=== PATIENT | male | born 1970 | race Caucasian/White ===

== ENCOUNTER 2018-04-10 11:18 | Emergency (ER) | payer OTHER, SELFPAY ==
[2018-04-10 11:18] VITALS: BP 193/84; PULSE 85; RESP 16; TEMP 36.8; O2SAT 97; BMI 45.7
--- NOTE | 2018-04-10 11:38 | RAD_ITS ---
STUDY: X-RAY - THORACIC SPINE REASON FOR EXAM: Male, 47 years old. Back pain for one week without known injury. TECHNIQUE: 5 view(s) of the thoracic spine were obtained. COMPARISON: Chest radiograph dated November 19, 2015. FINDINGS: There is an increase in the normal thoracic kyphosis. There is no substantial scoliosis. There is demineralization of the thoracic spine with endplate spondylosis. There is multilevel disc space narrowing of the thoracic spine. The soft tissue structures are unremarkable. RAD/Thoracic Spine 3 Views IMPRESSION: Multilevel thoracic spondylosis and degenerative disc disease of the thoracic spine. Electronically Signed: Kamryn Bedoya MD at 14:45 EDT , Service support ,
--- NOTE | 2018-04-10 11:38 | RAD_ITS ---
STUDY: X-RAY - UNILATERAL RIBS ( LEFT ) WITH CHEST REASON FOR EXAM: Male, 47 years old. Left-sided rib pain. TECHNIQUE - RIBS: Four view(s) of the ribs. TECHNIQUE - CHEST: Single PA view of the chest. COMPARISON: November 19, 2015. FINDINGS - RIBS: Normal visualized ribs without a demonstrated fracture. FINDINGS - CHEST: The lungs are clear and expanded. There is no demonstrated pleural abnormality. Normal size heart. Normal mediastinum and jimi. Normal visualized pulmonary arteries. Normal visualized aortic arch and descending thoracic aorta. There are diffuse degenerative changes of the visualized thoracic spine. Normal visualized ribs, clavicles, and shoulders. There is no demonstrated abnormality of the visualized soft tissue structures of the upper abdomen. RAD/Ribs Uni Min 3V w/PA Chest IMPRESSION: RIBS: No radiographic evidence for acute fracture. If there is still clinical concern for acute fracture, follow-up bone scan maybe helpful in evaluating a healing radiographically occult fracture. CHEST: No radiographic evidence of acute cardiopulmonary disease. Electronically Signed: Kamryn Bedoya MD at 13:09 EDT , Service support ,
--- NOTE | 2018-04-10 11:39 | ED.VISSUMM ---
- ER Visit Summary Date of Service: 04/10/18 Chief Complaint: Back pain History of Present Illness: The patient is a 47 M presenting with back pain. Patient states 3 weeks ago he pulled his right lower back. That improved and then 1 week ago he started having pain in the left mid back. This is worsened with movement and certain positions. He was seen by his primary care physician and given ibuprofen and a muscle relaxer. He then called his PCP the next day because the pain was worsening and was given steroids. He was advised to not take ibuprofen along with the steroids. He has now run out of the muscle relaxer and is taking Tylenol. He denies any known injury. No fever. Denies chest pain or shortness of breath. Denies other complaints. Physical Examination: Vitals are stable. Patient is afebrile. Alert no acute distress. HEENT exam is unremarkable. Neck is supple. Lungs are clear and equal bilaterally. Left posterior/lateral mid chest wall tenderness with no crepitus. Left paraspinal thoracic muscle tenderness with no midline tenderness Heart is regular rate and rhythm. Abdomen is soft nontender nondistended. Extremities are unremarkable. Skin is warm and dry. No rash No focal neurologic deficit. Normal strength Remainder of exam is unremarkable. Emergency Department Course and Treatment: D-dimer is negative. Left rib series shows no acute process. Thoracic spine shows degenerative changes. Patient is given a short course of [place] for home and advised to follow-up with his primary care physician. Advised return to ED if worsening complaints. Disposition: Discharge home Impression: Thoracic strain This note was generated with [employer] dictation software. It may contain incorrect words, spelling, and punctuation that were not noted in review of the chart prior to signing ED Disposition - Plan for ED Patient: Chief Complaint: Back Instructions: ED Neck Back Pain General Prescriptions: Hydrocodone Bitart/Apap 5-325 [[place] 5MG-325MG] 1 tablet PO Q6H PRN PRN 3 Days #10 tablet PRN Reason: Pain Referrals: Kurtis Chris MD [Primary Care Provider] -
--- NOTE | 2018-04-10 11:43 | ED.DCSUM_ITS ---
- ER Visit Summary Date of Service: 04/10/18 Chief Complaint: Back pain History of Present Illness: The patient is a 47 M presenting with back pain. Patient states 3 weeks ago he pulled his right lower back. That improved and then 1 week ago he started having pain in the left mid back. This is worsened with movement and certain positions. He was seen by his primary care physician and given ibuprofen and a muscle relaxer. He then called his PCP the next day because the pain was worsening and was given steroids. He was advised to not take ibuprofen along with the steroids. He has now run out of the muscle relaxer and is taking Tylenol. He denies any known injury. No fever. Denies chest pain or shortness of breath. Denies other complaints. Physical Examination: Vitals are stable. Patient is afebrile. Alert no acute distress. HEENT exam is unremarkable. Neck is supple. Lungs are clear and equal bilaterally. Left posterior/lateral mid chest wall tenderness with no crepitus. Left paraspinal thoracic muscle tenderness with no midline tenderness Heart is regular rate and rhythm. Abdomen is soft nontender nondistended. Extremities are unremarkable. Skin is warm and dry. No rash No focal neurologic deficit. Normal strength Remainder of exam is unremarkable. Emergency Department Course and Treatment: D-dimer is negative. Left rib series shows no acute process. Thoracic spine shows degenerative changes. Patient is given a short course of [place] for home and advised to follow-up with his primary care physician. Advised return to ED if worsening complaints. Disposition: Discharge home Impression: Thoracic strain This note was generated with [employer] dictation software. It may contain incorrect words, spelling, and punctuation that were not noted in review of the chart prior to signing ED Disposition - Plan for ED Patient: Chief Complaint: Back Instructions: ED Neck Back Pain General Prescriptions: Hydrocodone Bitart/Apap 5-325 [[place] 5MG-325MG] 1 tablet PO Q6H PRN PRN 3 Days # 10 tablet PRN Reason: Pain Referrals: Kurtis Chris MD [Primary Care Provider] -
[2018-04-10 12:28] LABS: D-Dimer Quantitative (DVT/PE) < 0.27 FEU/ug/m (0.27-0.49)
[2018-04-10 14:09] VITALS: BP 160/82; PULSE 67; RESP 18; O2SAT 99
--- NOTE | 2018-04-10 15:00 | ED.DEP ---
ED Disposition - Plan for ED Patient: Chief Complaint: Back Instructions: ED Neck Back Pain General Prescriptions: Hydrocodone Bitart/Apap 5-325 [[place] 5MG-325MG] 1 tablet PO Q6H PRN PRN 3 Days #10 tablet PRN Reason: Pain Referrals: Kurtis Chris MD [Primary Care Provider] -
--- NOTE | 2018-04-10 15:01 | DCINST.ED_ITS ---
ED Disposition - Plan for ED Patient: Chief Complaint: Back Instructions: ED Neck Back Pain General Prescriptions: Hydrocodone Bitart/Apap 5-325 [[place] 5MG-325MG] 1 tablet PO Q6H PRN PRN 3 Days # 10 tablet PRN Reason: Pain Referrals: Kurtis Chris MD [Primary Care Provider] -
== END 2018-04-10 15:15 | disposition home or self-care (01) ==
LOC: ED 11:43
PROVIDERS: Emergency Provider Emergency Medicine; Family Provider Family Medicine; PCP Family Medicine
DX: S29.012A Strain of muscle and tendon of back wall of thorax, initial encounter (principal); X50.9XXA Other and unspecified overexertion or strenuous movements or postures, initial encounter; Y93.9 Activity, unspecified; Y92.9 Unspecified place or not applicable; Z72.0 Tobacco use
CPT/HCPCS: 36415; 71101; 72072; 85379; 99283

== ENCOUNTER → 2018-09-08 08:49 | Outpatient (CLI) | payer OTHER, SELFPAY ==
[2018-09-08 10:26] LABS: AST(SGOT) 16 U/L (15-37); Alanine Aminotransfer ALT/SGPT 29 U/L (16-61); Albumin, Serum 3.8 g/dL (3.2-5.0); Alkaline Phosphatase 60 U/L (45-117); Anion Gap 6 (5-15); BUN 19 mg/dL (7-18); Chloride 101 mmol/L (98-107); Cholesterol 138 mg/dL (200); EST Glomerular Filtration Rate 86 mL/min (>60); Est Glom Filt Rate - Afr Amer 104 mL/min (>60); Globulin 3.9 g/dL (2.2-4.2); Glucose 91 mg/dL (74-106); High Density Lipoprotein 41 mg/dL; Potassium 4.2 mmol/L (3.5-5.1); Protein, Total 7.7 g/dL (6.4-8.2); Sodium Level 137 mmol/L (136-145); Triglycerides 159 mg/dL; Very Low Density Lipoprotein 32 mg/dL (5-40)
== END ==
PROVIDERS: Family Provider Family Medicine; PCP Family Medicine; Visit Provider Family Medicine
DX: I10 Essential (primary) hypertension (principal)
CPT/HCPCS: 36415; 80053; 80061

== ENCOUNTER 2018-10-07 10:14 | Outpatient (RCR) | payer OTHER, SELFPAY | END 2018-10-24 23:59 | LOC: NS 10:14 | PROVIDERS: Family Provider Family Medicine; PCP Family Medicine; Visit Provider Family Medicine | DX: E66.01 Morbid (severe) obesity due to excess calories (principal); Z68.42 Body mass index [BMI] 45.0-49.9, adult; R73.01 Impaired fasting glucose; G47.33 Obstructive sleep apnea (adult) (pediatric); I10 Essential (primary) hypertension; E78.5 Hyperlipidemia, unspecified; Z71.3 Dietary counseling and surveillance | CPT/HCPCS: 97802 ==

== ENCOUNTER 2018-11-11 08:00 | Outpatient (RCR) | payer OTHER, SELFPAY | END 2018-11-24 23:59 | LOC: NS 08:00 | PROVIDERS: Family Provider Family Medicine; PCP Family Medicine; Visit Provider Family Medicine | DX: E66.01 Morbid (severe) obesity due to excess calories (principal); Z68.42 Body mass index [BMI] 45.0-49.9, adult; R73.01 Impaired fasting glucose; G47.33 Obstructive sleep apnea (adult) (pediatric); I10 Essential (primary) hypertension; E78.5 Hyperlipidemia, unspecified; Z71.3 Dietary counseling and surveillance | CPT/HCPCS: 97803 ==

== ENCOUNTER 2018-12-09 08:30 | Outpatient (RCR) | payer OTHER, SELFPAY | END 2018-12-22 23:59 | LOC: NS 08:30 | PROVIDERS: Family Provider Family Medicine; PCP Family Medicine; Visit Provider Family Medicine | DX: E66.01 Morbid (severe) obesity due to excess calories (principal); Z68.42 Body mass index [BMI] 45.0-49.9, adult; R73.01 Impaired fasting glucose; G47.33 Obstructive sleep apnea (adult) (pediatric); I10 Essential (primary) hypertension; E78.5 Hyperlipidemia, unspecified; Z71.3 Dietary counseling and surveillance | CPT/HCPCS: 97803 ==

== ENCOUNTER 2019-01-06 08:30 | Outpatient (RCR) | payer OTHER, SELFPAY | END 2019-01-22 23:59 | LOC: NS 08:30 | PROVIDERS: Family Provider Family Medicine; PCP Family Medicine; Visit Provider Family Medicine | DX: E66.01 Morbid (severe) obesity due to excess calories (principal); Z68.42 Body mass index [BMI] 45.0-49.9, adult; R73.01 Impaired fasting glucose; G47.33 Obstructive sleep apnea (adult) (pediatric); I10 Essential (primary) hypertension; E78.5 Hyperlipidemia, unspecified; Z71.3 Dietary counseling and surveillance | CPT/HCPCS: 97803 ==

== ENCOUNTER 2019-01-27 10:32 | Outpatient (RCR) | payer OTHER, SELFPAY | END 2019-02-21 23:59 | LOC: NS 10:32 | PROVIDERS: Family Provider Family Medicine; PCP Family Medicine; Visit Provider Family Medicine | DX: E66.01 Morbid (severe) obesity due to excess calories (principal); Z68.42 Body mass index [BMI] 45.0-49.9, adult; R73.01 Impaired fasting glucose; G47.33 Obstructive sleep apnea (adult) (pediatric); I10 Essential (primary) hypertension; E78.5 Hyperlipidemia, unspecified; Z71.3 Dietary counseling and surveillance | CPT/HCPCS: 97803 ==

== ENCOUNTER 2019-03-10 10:39 | Outpatient (RCR) | payer OTHER, SELFPAY | END 2019-03-24 23:59 | LOC: NS 10:39 | PROVIDERS: Family Provider Family Medicine; PCP Family Medicine; Visit Provider Family Medicine | DX: E66.01 Morbid (severe) obesity due to excess calories (principal); Z68.42 Body mass index [BMI] 45.0-49.9, adult; R73.01 Impaired fasting glucose; G47.33 Obstructive sleep apnea (adult) (pediatric); I10 Essential (primary) hypertension; E78.5 Hyperlipidemia, unspecified; Z71.3 Dietary counseling and surveillance | CPT/HCPCS: 97803 ==

== ENCOUNTER 2019-04-21 10:30 | Outpatient (RCR) | payer OTHER, SELFPAY | END 2019-04-23 23:59 | LOC: NS 10:30 | PROVIDERS: Family Provider Family Medicine; PCP Family Medicine; Visit Provider Family Medicine | DX: E66.01 Morbid (severe) obesity due to excess calories (principal); Z68.42 Body mass index [BMI] 45.0-49.9, adult; R73.01 Impaired fasting glucose; G47.33 Obstructive sleep apnea (adult) (pediatric); I10 Essential (primary) hypertension; E78.5 Hyperlipidemia, unspecified; Z71.3 Dietary counseling and surveillance | CPT/HCPCS: 97803 ==

== ENCOUNTER 2019-05-05 10:37 | Outpatient (RCR) | payer OTHER, SELFPAY | END 2019-05-24 23:59 | LOC: NS 10:37 | PROVIDERS: Family Provider Family Medicine; PCP Family Medicine; Visit Provider Family Medicine | DX: E66.01 Morbid (severe) obesity due to excess calories (principal); Z68.42 Body mass index [BMI] 45.0-49.9, adult; R73.01 Impaired fasting glucose; G47.33 Obstructive sleep apnea (adult) (pediatric); I10 Essential (primary) hypertension; E78.5 Hyperlipidemia, unspecified; Z71.3 Dietary counseling and surveillance | CPT/HCPCS: 97803 ==

== ENCOUNTER 2019-05-26 09:36 | Outpatient (RCR) | payer OTHER, SELFPAY | END 2019-06-24 23:59 | LOC: NS 09:36 | PROVIDERS: Family Provider Family Medicine; PCP Family Medicine; Visit Provider Family Medicine | DX: E66.01 Morbid (severe) obesity due to excess calories (principal); Z68.42 Body mass index [BMI] 45.0-49.9, adult; R73.01 Impaired fasting glucose; G47.33 Obstructive sleep apnea (adult) (pediatric); I10 Essential (primary) hypertension; E78.5 Hyperlipidemia, unspecified; Z71.3 Dietary counseling and surveillance ==

== ENCOUNTER → 2019-08-29 09:40 | Outpatient (CLI) | payer OTHER, SELFPAY ==
[2019-08-29 13:04] LABS: Anion Gap 6 (5-15); BUN 19 mg/dL (7-18); BUN/Creat Ratio 18.1 RATIO (10-20); Calcium,Total 9.4 mg/dL (8.5-10.1); Chloride 102 mmol/L (98-107); Cholesterol 123 mg/dL (200); Creatinine, Serum 1.05 mg/dL (0.70-1.30); EST Glomerular Filtration Rate 81 mL/min (>60); Est Glom Filt Rate - Afr Amer 97 mL/min (>60); Glucose 87 mg/dL (74-106); High Density Lipoprotein 39 mg/dL; Potassium 4.1 mmol/L (3.5-5.1); Sodium Level 136 mmol/L (136-145); Triglycerides 127 mg/dL; Very Low Density Lipoprotein 25 mg/dL (5-40)
== END ==
PROVIDERS: Family Provider Family Medicine; PCP Family Medicine; Referring Provider Family Medicine; Visit Provider Family Medicine
DX: I10 Essential (primary) hypertension (principal)
CPT/HCPCS: 36415; 80048; 80061

== ENCOUNTER → 2019-09-28 12:19 | Outpatient (CLI) | payer OTHER, SELFPAY ==
--- NOTE | 2019-09-28 16:33 | NEURO ---
NCS and/or EMG Patient Report HPI: Patient is a 48-year-old male who presented with numbness and tingling in both feet for last several years. 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 His feet riley at night and he says his feet drag sometimes while walking. Patient does not have history of diabetes. Patient has history of back problems. Physical Exam: Decreased sensation to light touch noted in distal lower extremities especially in the both feet area, especially in the plantar aspect along the base of the toes. Findings: 1. Right and left sural sensory responses were non-recordable. 2. Normal right and left superficial peroneal sensory nerve responses. 3. There is evidence of reduced amplitudes of CMAPs of right and left common peroneal nerve motor responses along with a decreased nerve conduction velocities. 4. Right and left tibial motor nerve response showed evidence of decreased amplitude of CMAPs of the distal responses. Proximal responses were not recordable in the right and left tibial motor nerves. 5. Decrease insertional activity and recruitment noted in extensor digitorum brevis and extensor hallucis longus muscles. Impression: 1. 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 Recommendation: 1. Clinical correlation and appropriate work-up was recommended.
== END ==
PROVIDERS: Family Provider Family Medicine; PCP Family Medicine; Referring Provider Family Medicine; Visit Provider Family Medicine
DX: G62.9 Polyneuropathy, unspecified (principal)
CPT/HCPCS: 95886; 95910

== ENCOUNTER → 2020-01-01 07:31 | Outpatient (CLI) | payer OTHER, SELFPAY ==
[2020-01-01 10:17] LABS: Erythrocyte Sedimentation Rate 17 mm/hr (0-15)
[2020-01-01 10:48] LABS: Hemoglobin A1c 5.8 % (4.2-6.3)
[2020-01-01 10:59] LABS: HIV - WCH Non-Reactive (Nonreactive); Hepatitis C Antibody Non-Reactive (Nonreactive); Vitamin B12 414 pg/mL (211-911)
[2020-01-01 11:25] LABS: Ferritin 235 ng/mL (26-388); Iron 80 ug/dL (65-175); Iron Binding Capacity,Total 337 ug/dL (250-450); PERCENT IRON SATURATION 23.7 % (15.0-55.0); Rheumatoid Factor < 10.0 IU/mL (<15); T3 Uptake 33 % (33-40); T4 Free Direct 1.01 ng/dL (0.76-1.46); T4 Total, Thyroxin 9.4 ug/dL (4.5-12.1); T7 / Free Thyroxin Index 3.1 (1.4-4.5); Thyroid Stim Hormone (TSH) 1.92 uIU/mL (0.358-3.74)
[2020-01-02 14:08] LABS: RNP Ab 0.2 AI (0.0-0.9); Smith Ab <0.2 AI (0.0-0.9)
[2020-01-02 17:15] LABS: ANTINUCLEAR ANTIBODIES DIRECT Negative (Negative)
[2020-01-03 16:08] LABS: Albumin 3.7 g/dL (2.9-4.4); Alpha-1-Globulins 0.2 g/dL (0.0-0.4); Alpha-2-Globulins 0.9 g/dL (0.4-1.0); Arsenic, Urine 24 H 9 ug/24 hr (0-50); Gamma Globulin 1.1 g/dL (0.4-1.8); Immunoglobulin A 221 mg/dL (90-386); Immunoglobulin M 28 mg/dL (20-172)
[2020-01-03 17:06] LABS: ARSENIC (TOTAL), URINE 12 ug/L (0-50); Creatinine, Urine 1.99 g/L (0.30-3.00)
[2020-01-03 17:07] LABS: Immunoglobulin G 1264 mg/dL (700-1600)
== END ==
PROVIDERS: PCP Family Medicine; Referring Provider Psychiatry & Neurology Neurology; Visit Provider Psychiatry & Neurology Neurology
DX: E61.1 Iron deficiency (principal); G25.81 Restless legs syndrome; G62.9 Polyneuropathy, unspecified; R73.9 Hyperglycemia, unspecified
CPT/HCPCS: 36415; 82175; 82570; 82607; 82728; 82746; 82784; 83036; 83540; 83550; 83655; 83825; 84165; 84436; 84439; 84443; 84479; 85652; 86038; 86235; 86334; 86431; 86703; 86803

== ENCOUNTER → 2021-03-31 08:52 | Outpatient (CLI) | payer OTHER, SELFPAY ==
[2021-03-31 10:36] LABS: PSA,Total- Diagnostic 0.73 ng/mL (0.0-4.0)
[2021-04-01 12:14] LABS: ALB/GLOB Ratio 1.1 RATIO (0.9-2.4); AST(SGOT) 13 U/L (15-37); Alanine Aminotransfer ALT/SGPT 24 U/L (16-61); Albumin, Serum 3.9 g/dL (3.2-5.0); Alkaline Phosphatase 64 U/L (45-117); Anion Gap 6 (5-15); BUN 22 mg/dL (7-18); BUN/Creat Ratio 18.6 RATIO (10-20); Calcium,Total 9.4 mg/dL (8.5-10.1); Chloride 104 mmol/L (98-107); Creatinine, Serum 1.18 mg/dL (0.70-1.30); EST Glomerular Filtration Rate 70 mL/min (>60); Est Glom Filt Rate - Afr Amer 85 mL/min (>60); Globulin 3.7 g/dL (2.2-4.2); Glucose 97 mg/dL (74-106); Potassium 4.6 mmol/L (3.5-5.1); Protein, Total 7.6 g/dL (6.4-8.2); Sodium Level 138 mmol/L (136-145)
== END ==
PROVIDERS: PCP Family Medicine; Visit Provider Family Medicine
DX: N41.0 Acute prostatitis (principal); R73.01 Impaired fasting glucose
CPT/HCPCS: 36415; 80053; 84153

== ENCOUNTER → 2021-05-08 13:43 | Outpatient (CLI) | payer OTHER, SELFPAY ==
--- NOTE | 2021-05-08 13:46 | RAD_ITS ---
INDICATION: C6 RADICULOPATHY EXAMINATION/TECHNIQUE: X-RAY - XR Spine Cervical 4 or 5 Views COMPARISON: None. FINDINGS: VERTEBRAE: Preserved vertebral body height. No fracture. No spondylolisthesis. Preservation of the normal cervical lordosis. Mild multilevel facet arthropathy. DISCS: Mild degenerative disc disease and spondylosis at C5-6 and C6-7. NECK SOFT TISSUES: No prevertebral soft tissue widening. LUNG APICES: Clear. RAD/Cerv Spine 4 or 5 Views IMPRESSION: Mild degenerative disc disease and spondylosis at C5-6 and C6-7. Electronically Signed: Constantine Lindsey MD at 23:43 EDT Tel , Service support ,
== END ==
PROVIDERS: PCP Family Medicine; Referring Provider Family Medicine; Visit Provider Family Medicine
DX: M54.12 Radiculopathy, cervical region (principal)
CPT/HCPCS: 72050

== ENCOUNTER 2021-07-01 16:00 | Outpatient (RCR) | payer OTHER, SELFPAY ==
--- NOTE | 2021-06-20 13:06 | HP.PTEVAL ---
Patient's Visit Information FELIX JUNIOR is a 50 year old M referred to Physical Therapy by Dr. Kurtis Chris MD with a diagnosis of L UE radiculopathy. Date of Evaluation: 06/20/21 Physical Therapist: Matthew Pearl, PT, ATC - Visit Plan Frequency: 2-3x /Week Duration: 4 Weeks Plan: C/S DTR, postural edu, PROM/Mobs, US. Trial of CTx first appt. Reassess - Subjective Pt reports tingling and numbness in the L UE which originates in the left shoulder and extends down to the fingers. Pt reports this has been going on for a month and a half. Pt reports the pain had an insidious onset in nature. Pt does not this all started shortly after a 13oo[address] trip he went on and notes this may have provoked his pain. Pt reports his sx's are intermittent in nature. Pt reports sitting in a soft chair doesn?t provoke his sx's, but sitting in a hard chair during this evaluation is causing his sx's intermittlently. 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 Pt reports he has had x-rays of the shoulder and neck. Pt reports he hasn?t been told any of the results at this time. Pt reports he also tends to feel his pain a lot when he goes on walks. Pt notes he is R hand dominant. Pt reports sleep difficulty secondary to pain. Pt reports L UE pain is 1/10 while at rest, but increases to 7/10 at worst. - Pain L UE Pain Intensity (Out of 10): 1 Pain Intensity Range: 7 - Objective Neuro: B UE sensation is WNL to light touch. B bicepital reflex= 2/3. MMT: B UE's are grossly 5/5 throughout. Party Plan Salesperson strength: R= 145 #F, L= 135 #F. ROM: C/S ROM is WNL with exception to retraction and extension which are both minimally limited. Repeated Movements: RPIS 10x3 bertter, RRIS 10x3 peripheralised sx's. Special tests: Pos apley compression and distraction tests - Balance/Special Test Scores Quick DASH Score: 20.4525 - Goals Goal 1:: Decrease L UE pain x 50% to aid with sleep Goal Time Frame: 4-6 Weeks Goal 2:: Decrease L UE radiculopathy x 50% to aid with sleep Goal Time Frame: 4-6 Weeks Goal 3:: I with HEP Goal Time Frame: 4-6 Weeks - Rehabilitation Potential Physical Therapy Diagnosis: Pt has L UE radiculopathy, L UE pain, and limited C/S ROM secondary to DDD Rehabilitation Potential: Good - Anticipated Interventions Patient/Client Instruction: Educate patient on: Condition, Plan of Care For the Purpose of:: To improve self management Manual Therapy Techniques to Include: Mobilization, Soft tissue mobilization For the Purpose of:: To decrease pain, To increase ROM Ultrasound (thermal/non thermal): Yes For the Purpose of:: To decrease pain Thank you for the opportunity to evaluate your patient. For Medicare and Medicare HMO plans, please review the plan of care and approve it. It will need to be FAXED BACK to us at [phone] for Medicare purposes. For Medicare only, by signing this I certify the plan of care. Please let me know if there are questions or concerns regarding this plan of care. Physician Signature: Date:
--- NOTE | 2021-07-08 13:26 | HP.PT.NRP ---
FELIX JUNIOR was seen in my office for initial evaluation on 06/20/21. The following Plan of Care was established for this patient: Initial Frequency: 2-3x /Week Initial Duration: 4 Weeks Patient/Client Instruction: Educate patient on: Condition, Plan of Care For the Purpose of:: To improve self management Manual Therapy Techniques to Include: Mobilization, Soft tissue mobilization For the Purpose of:: To decrease pain, To increase ROM Ultrasound (thermal/non thermal): Yes For the Purpose of:: To decrease pain This patient was last seen in our office . Pertinent comments regarding their Physical therapy will appear below: Pt returned on 07/04/21 on his 5th PT visit to report that he didnt feel like his symptoms had changed at all. Pt is discontinued at this time and encouraged to return to his doctor at this time. At this point I will be discontinuing this patient from physical therapy. I would be happy to see this patient again in the future if found appropriate by the physician. Thank you! Matthew Pearl, PT, ATC Balance/Gait/Functional tests - Balance/Special Test Scores Quick DASH Score: 20.4528
== END 2021-07-01 19:00 | disposition home or self-care (01) ==
LOC: PT 16:00
PROVIDERS: PCP Family Medicine; Referring Provider Family Medicine; Visit Provider Family Medicine
DX: M54.12 Radiculopathy, cervical region (principal)
CPT/HCPCS: 97012; 97140; 97161

== ENCOUNTER → 2021-07-26 08:00 | Outpatient (CLI) | payer OTHER, SELFPAY ==
--- NOTE | 2021-07-26 08:09 | MRI_ITS ---
STUDY: MRI CERVICAL SPINE WITHOUT CONTRAST REASON FOR EXAM: Male, 50 years old. C5 RADICULOPATHY, left arm tingling TECHNIQUE: Standardized fat and water weighted pulse sequences were obtained in the sagittal and axial planes. COMPARISON: None FINDINGS: Normal foramen magnum and brainstem-cervical cord junction. Normal cervical lordosis. C2-3: Normal endplates. Normal disc height, signal and morphology. Normal central canal and intervertebral neural foramina. C3-4: There is minimal disc space narrowing and endplate spondylosis. There is no significant disc herniation, central canal or right foraminal stenosis. Uncovertebral and facet arthropathy with moderate left foraminal stenosis. C4-5: There is minimal disc space narrowing and endplate spondylosis. There is no significant disc herniation, central canal or foraminal stenosis. C5-6: There is moderate disc space narrowing and endplates spondylosis. Moderate disc osteophyte complex with moderate central canal stenosis. Uncovertebral and facet arthropathy with moderate right and severe left foraminal stenosis. C6-7: There is minimal disc space narrowing and endplate spondylosis. There is no significant disc herniation, central canal stenosis. Uncovertebral and facet arthropathy with mild right and mild left foraminal stenosis. C7-T1: There is minimal disc space narrowing and endplate spondylosis. There is no significant disc herniation, central canal or foraminal stenosis. Normal cervical cord. MRI/Spine Cervical (Routine) IMPRESSION: C5/C6: Moderate central canal stenosis. Moderate right and severe left foraminal stenosis. Electronically Signed: Moreno Newman MD at 9:14 EDT Tel , Service support ,
== END ==
PROVIDERS: PCP Family Medicine; Referring Provider Family Medicine; Visit Provider Family Medicine
DX: M54.12 Radiculopathy, cervical region (principal)
CPT/HCPCS: 72141

== ENCOUNTER → 2022-02-19 | Outpatient (CLI) | payer OTHER, SELFPAY ==
[2022-02-19 10:09] LABS: Anion Gap 6 (5-15); BUN 22 mg/dL (7-18); BUN/Creat Ratio 17.2 RATIO (10-20); Calcium,Total 9.5 mg/dL (8.5-10.1); Chloride 100 mmol/L (98-107); Creatinine, Serum 1.28 mg/dL (0.70-1.30); EST Glomerular Filtration Rate 63 mL/min (>60); Est Glom Filt Rate - Afr Amer 77 mL/min (>60); Glucose 98 mg/dL (74-106); Potassium 4.3 mmol/L (3.5-5.1); Sodium Level 135 mmol/L (136-145)
== END | disposition home or self-care (01) ==
PROVIDERS: PCP Family Medicine; Referring Provider Family Medicine; Visit Provider Family Medicine
DX: I10 Essential (primary) hypertension (principal)
CPT/HCPCS: 36415; 80048

== ENCOUNTER → 2022-05-18 | Outpatient (CLI) | payer OTHER, SELFPAY ==
[2022-05-18 20:03] LABS: M R Staph aureus DNA By PCR Negative (Negative); Probe Check PASS; Specimen Processing Control PASS; Staph aureus DNA By PCR POSITIVE (Negative)
== END | disposition home or self-care (01) ==
PROVIDERS: PCP Family Medicine; Referring Provider Podiatrist; Visit Provider Podiatrist
DX: L03.90 Cellulitis, unspecified (principal)
CPT/HCPCS: 87070; 87075; 87077; 87186; 87205; 87640

== ENCOUNTER 2022-09-30 08:26 | Outpatient (CLI) | payer OTHER, SELFPAY ==
[2022-09-30 10:19] LABS: Hematocrit 43.2 % (40-54); Hemoglobin 14.5 g/dL (13.0-16.5); Mean Corp Hgb Conc 33.6 g/dL (32-36); Mean Corpuscular Hgb 29.3 pg (27.0-32.0); Mean Corpuscular Volume 87.3 fL (80-94); Mean Platelet Vol. 9.9 fl (6.2-12.0); Platelet Count 207 K/mm3 (150-450); RBC Distribution Width CV 12.3 % (11.6-14.6); RBC Distribution Width SD 39.2 fl (35.1-43.9); Red Blood Count 4.95 M/mm3 (4.6-6.2); White Blood Count 8.3 K/mm3 (4.4-11.0)
[2022-09-30 10:42] LABS: Vitamin B12 363 pg/mL (211-911); Vitamin D,25 Hydroxy 11.8 ng/mL
[2022-09-30 10:48] LABS: Anion Gap 6 (5-15); BUN 22 mg/dL (7-18); BUN/Creat Ratio 19.6 RATIO (10-20); Calcium,Total 9.4 mg/dL (8.5-10.1); Chloride 101 mmol/L (98-107); Cholesterol 150 mg/dL (200); Creatinine, Serum 1.12 mg/dL (0.70-1.30); EST Glomerular Filtration Rate 74 mL/min (>60); Est Glom Filt Rate - Afr Amer 89 mL/min (>60); Glucose 104 mg/dL (74-106); High Density Lipoprotein 36 mg/dL; Potassium 4.4 mmol/L (3.5-5.1); Sodium Level 135 mmol/L (136-145); Thyroid Stim Hormone (TSH) 1.24 uIU/mL (0.358-3.74); Triglycerides 202 mg/dL; Very Low Density Lipoprotein 40 mg/dL (5-40)
== END 2022-09-30 23:59 | disposition home or self-care (01) ==
LOC: MFPLAB 08:28
PROVIDERS: PCP Family Medicine; Referring Provider Family Medicine; Visit Provider Family Medicine
DX: R53.83 Other fatigue (principal); I10 Essential (primary) hypertension
CPT/HCPCS: 36415; 80048; 80061; 82306; 82607; 84403; 84443; 85027

== ENCOUNTER → 2023-04-12 | Outpatient (CLI) | payer OTHER, SELFPAY ==
[2023-04-12 07:46] LABS: Bacteria 0 SEEN /hpf (None Seen); Squamous Epithelial Cells - UA 0 SEEN /hpf (0-5)
[2023-04-12 10:10] LABS: Color, Urine Yellow (Yellow); Glucose, Dipstick Normal (Normal); Ketone-Dipstick Negative (Negative); Leukocyte Esterase-Dipstick Negative /ul (Negative); Nitrite-Dipstick Negative (Negative); Occult Blood-Urine Negative /ul (Negative); Protein-Dipstick 15 mg/dl (Negative); Specific Gravity, Urine 1.025 (1.002-1.030); Urine Bilirubin Dipstick Negative (Negative); Urine Clarity Clear (Clear); Urine Urobilinogen Normal (Normal)
[2023-04-12 10:23] LABS: Mucous, Urine RARE /hpf (<or=2+); Red Blood Cells-Urine 0-5 SEEN /hpf (0-5); White Blood Cells 0-5 SEEN /hpf (0-5)
[2023-04-12 10:29] LABS: Hematocrit 43.7 % (40-54); Hemoglobin 14.3 g/dL (13.0-16.5); Mean Corp Hgb Conc 32.7 g/dL (32-36); Mean Corpuscular Hgb 28.7 pg (27.0-32.0); Mean Corpuscular Volume 87.8 fL (80-94); Platelet Count 214 K/mm3 (150-450); RBC Distribution Width SD 41.4 fl (35.1-43.9); Red Blood Count 4.98 M/mm3 (4.6-6.2); White Blood Count 8.6 K/mm3 (4.4-11.0)
[2023-04-12 10:32] LABS: Vitamin B12 289 pg/mL (211-911)
[2023-04-12 11:05] LABS: ALB/GLOB Ratio 0.9 RATIO (0.9-2.4); AST(SGOT) 16 U/L (15-37); Alanine Aminotransfer ALT/SGPT 28 U/L (16-61); Albumin, Serum 3.6 g/dL (3.2-5.0); Alkaline Phosphatase 58 U/L (45-117); Anion Gap 7 (5-15); BUN 20 mg/dL (7-18); BUN/Creat Ratio 17.7 RATIO (10-20); Calcium,Total 9.4 mg/dL (8.5-10.1); Chloride 104 mmol/L (98-107); Cholesterol 134 mg/dL (200); Creatinine, Serum 1.13 mg/dL (0.70-1.30); EST Glomerular Filtration Rate 73 mL/min (>60); Est Glom Filt Rate - Afr Amer 88 mL/min (>60); Glucose 107 mg/dL (74-106); High Density Lipoprotein 39 mg/dL; Magnesium 2.1 mg/dL (1.6-2.6); PSA,Total - Annual Screen 0.69 ng/mL (0.00-4.00); Potassium 4.3 mmol/L (3.5-5.1); Protein, Total 7.6 g/dL (6.4-8.2); Sodium Level 137 mmol/L (136-145); Thyroid Stim Hormone (TSH) 1.99 uIU/mL (0.358-3.74); Triglycerides 154 mg/dL; Very Low Density Lipoprotein 31 mg/dL (5-40)
== END | disposition home or self-care (01) ==
PROVIDERS: PCP Family Medicine; Referring Provider Family Medicine; Visit Provider Family Medicine
DX: R55 Syncope and collapse (principal); Z13.220 Encounter for screening for lipoid disorders; Z12.5 Encounter for screening for malignant neoplasm of prostate; N52.9 Male erectile dysfunction, unspecified
CPT/HCPCS: 36415; 80053; 80061; 81001; 82607; 83735; 84153; 84403; 84443; 85027; G0103

== ENCOUNTER → 2023-05-17 | Outpatient (CLI) | payer OTHER, SELFPAY ==
[2023-05-22 10:09] LABS: Testosterone, % Free 2.97 % (1.50-4.20); Testosterone, Free 6.53 ng/dL (5.00-21.00); Testosterone, Total 220 ng/dL (264-916)
== END | disposition home or self-care (01) ==
LOC: MTLAB 07:09
PROVIDERS: PCP Family Medicine; Referring Provider Family Medicine; Visit Provider Family Medicine
DX: N52.9 Male erectile dysfunction, unspecified (principal)
CPT/HCPCS: 36415; 84402; 84403

== ENCOUNTER → 2023-12-30 | Outpatient (CLI) | payer OTHER, SELFPAY | END | disposition home or self-care (01) | LOC: MFPLAB 08:34 | PROVIDERS: PCP Family Medicine; Visit Provider Family Medicine | DX: R79.89 Other specified abnormal findings of blood chemistry (principal) | CPT/HCPCS: 36415; 84403 ==

== ENCOUNTER → 2024-02-29 | Outpatient (CLI) | payer OTHER, SELFPAY | END | disposition home or self-care (01) | LOC: MTLAB 07:34 | PROVIDERS: PCP Family Medicine; Referring Provider Family Medicine; Visit Provider Family Medicine | DX: R79.89 Other specified abnormal findings of blood chemistry (principal) | CPT/HCPCS: 36415; 84403 ==

== ENCOUNTER → 2024-05-22 | Outpatient (CLI) | payer OTHER, SELFPAY ==
--- NOTE | 2024-05-22 10:48 | RAD_ITS ---
INDICATION: pain, swelling EXAMINATION/TECHNIQUE: X-RAY - LEFT XR Ankle Min 3 Views 3 VIEWS COMPARISON: None FINDINGS: SOFT TISSUES: Diffuse ankle edema. No subcutaneous emphysema. Small large ankle effusion. No radiopaque foreign body. BONES/JOINTS: Tibiotalar joint space loss with diffuse subchondral sclerosis, widening of the tibial plafond and flattening of the talar dome. Mild widening of the medial ankle mortise space. Concern for fracture of the posterior malleolus base on lateral view with small cortical step-off at the posterior talar dome. No dislocation. . No aggressive osseous lesion Moderate calcaneal plantar enthesophyte. RAD/Ankle min 3 Views IMPRESSION: Severe tibiotalar osteoarthritis with joint space loss and osseous remodeling. Concern for secondary fracture of the posterior process of the talus with cortical step-off along the posterior talar dome. Diffuse ankle edema with small joint effusion. Electronically Signed: Inocente Collins MD at 9:01 EDT ,
== END | disposition home or self-care (01) ==
LOC: MTRAD 10:48
PROVIDERS: PCP Family Medicine; Referring Provider Family Medicine; Visit Provider Family Medicine
DX: M25.572 Pain in left ankle and joints of left foot (principal); M79.89 Other specified soft tissue disorders
CPT/HCPCS: 73610

== ENCOUNTER → 2024-06-12 | Outpatient (CLI) | payer OTHER, SELFPAY ==
--- NOTE | 2024-06-12 18:59 | CT_ITS ---
EXAM: CT LEFT LOWER EXTREMITY/ANKLE WITHOUT INTRAVENOUS CONTRAST CLINICAL INDICATION: Left Ankle pain TECHNIQUE: Helically acquired images were obtained of the left lower extremity/ankle without intravenous contrast. 2-D reformats were performed by the technologist. CTDIvol = ( 15.35 ) mGy, DLP = ( 516.39 ) mGycm This CT exam was performed using one or more of the following dose reduction techniques: automated exposure control, adjustment of the mA and/or kV according to patient size, and/or use of iterative reconstruction technique. COMPARISON: May 22, 2024. FINDINGS: BONES/JOINTS: Severe osteoarthrosis of the tibiotalar articulation. Prominent plantar and posterior calcaneal enthesophytes. Os supranaviculare. Intra-articular ossific bodies along the posterior aspect of the tibiotalar articulation. Synovial cyst measuring 2.0 x 1.2 cm located lateral to the talar head/neck. Additional synovial cyst versus joint effusion along the anterolateral aspect of the talocalcaneal articulation. No acute fracture. No subluxation. Normal alignment. No sclerotic or destructive changes. SOFT TISSUES: Cystic lesion with peripheral coarse calcification along the myotendinous junction of the flexor hallucis longus tendon. Cystic component on the axial images measures 1.7 x 0.9 cm. No soft tissue swelling or gas. No radiopaque foreign body. OTHER FINDINGS: Peroneal tenosynovitis. CT/Extremity Lower without Contra IMPRESSION: 1. Intra-articular ossific bodies along the posterior aspect of the tibiotalar articulation. 2. Synovial cyst measuring 2.0 x 1.2 cm located lateral to the talar head/neck. 3. Additional synovial cyst versus joint effusion along the anterolateral aspect of the talocalcaneal articulation. 4. Cystic lesion with peripheral coarse calcification along the myotendinous junction of the flexor hallucis longus tendon. 5. Severe osteoarthrosis at the tibiotalar articulation. Electronically Signed: Valentino River MD at 23:42 EDT ,
== END | disposition home or self-care (01) ==
LOC: CT 18:59
PROVIDERS: PCP Family Medicine; Referring Provider Family Medicine; Visit Provider Family Medicine
DX: M25.572 Pain in left ankle and joints of left foot (principal)
CPT/HCPCS: 73700

== ENCOUNTER → 2024-07-11 | Outpatient (CLI) | payer OTHER, SELFPAY ==
[2024-07-11 10:22] LABS: ALB/GLOB Ratio 0.9 RATIO (0.9-2.4); AST(SGOT) 14 U/L (15-37); Alanine Aminotransfer ALT/SGPT 22 U/L (16-61); Albumin, Serum 3.5 g/dL (3.2-5.0); Alkaline Phosphatase 52 U/L (45-117); Anion Gap 8 (5-15); BUN 17 mg/dL (7-18); BUN/Creat Ratio 15.5 RATIO (10-20); Calcium,Total 9.2 mg/dL (8.5-10.1); Chloride 101 mmol/L (98-107); Cholesterol 131 mg/dL (200); EST Glomerular Filtration Rate 75 mL/min (>60); Est Glom Filt Rate - Afr Amer 91 mL/min (>60); Glucose 108 mg/dL (74-106); High Density Lipoprotein 38 mg/dL; PSA,Total - Annual Screen 0.61 ng/mL (0.00-4.00); Protein, Total 7.5 g/dL (6.4-8.2); Sodium Level 136 mmol/L (136-145); Triglycerides 124 mg/dL; Very Low Density Lipoprotein 25 mg/dL (5-40)
== END | disposition home or self-care (01) ==
LOC: MTLAB 07:11
PROVIDERS: PCP Family Medicine; Referring Provider Family Medicine; Visit Provider Family Medicine
DX: R79.89 Other specified abnormal findings of blood chemistry (principal); Z12.5 Encounter for screening for malignant neoplasm of prostate; I10 Essential (primary) hypertension
CPT/HCPCS: 36415; 80053; 80061; 84153; 84403; G0103

== ENCOUNTER → 2024-10-11 | Outpatient (CLI) | payer OTHER, SELFPAY ==
[2024-10-12 16:08] LABS: Endomysial Antibody IgA Negative (Negative); Immunoglobulin A 228 mg/dL (90-386); t-Transglutaminase IgA <2 U/mL (0-3)
== END | disposition home or self-care (01) ==
LOC: MTLAB 10:43
PROVIDERS: PCP Family Medicine; Referring Provider Internal Medicine Gastroenterology; Visit Provider Internal Medicine Gastroenterology
DX: R19.7 Diarrhea, unspecified (principal)
CPT/HCPCS: 36415; 82784; 83516; 86140; 86255

== ENCOUNTER → 2025-05-30 | Outpatient (CLI) | payer OTHER, SELFPAY ==
[2025-05-30 10:32] LABS: Hematocrit 43.4 % (40-54); Hemoglobin 14.4 g/dL (13.0-16.5); Mean Corp Hgb Conc 33.2 g/dL (32-36); Mean Corpuscular Volume 87.3 fL (80-94); Mean Platelet Vol. 9.6 fl (6.2-12.0); Platelet Count 214 K/mm3 (150-450); RBC Distribution Width CV 13.3 % (11.6-14.6); RBC Distribution Width SD 42.8 fl (35.1-43.9); Red Blood Count 4.97 M/mm3 (4.6-6.2); White Blood Count 8.4 K/mm3 (4.4-11.0)
[2025-05-30 11:09] LABS: AST(SGOT) 19 U/L (<=37); Alanine Aminotransfer ALT/SGPT 20 U/L (<=46); Albumin, Serum 4.1 g/dL (3.5-5.0); Alkaline Phosphatase 58 U/L (40-129); Anion Gap 11 (5-15); BUN 21 mg/dL (4-19); BUN/Creat Ratio 19.8 RATIO (10-20); Calcium,Total 9.7 mg/dL (7.6-11.0); Carbon Dioxide 25.3 mmol/L (21.0-32.0); Chloride 100 mmol/L (98-108); Cholesterol 149 mg/dL (<=200); Globulin 3.3 g/dL (2.2-4.2); Glucose 101 mg/dL (70-99); Low Density Lipoprotein Calc. 79 mg/dL; Potassium 4.6 mmol/L (3.3-5.1); Triglycerides 154 mg/dL; Very Low Density Lipoprotein 31 mg/dL (5-40); cholesterol:hdl ratio screen 3.78
== END | disposition home or self-care (01) ==
LOC: MFPLAB 09:19
PROVIDERS: PCP Family Medicine; Referring Provider Family Medicine; Visit Provider Family Medicine
DX: E34.9 Endocrine disorder, unspecified (principal); I10 Essential (primary) hypertension
CPT/HCPCS: 36415; 80053; 80061; 84403; 85027

== ENCOUNTER → 2025-07-17 | Outpatient (CLI) | payer OTHER, SELFPAY | END | disposition home or self-care (01) | LOC: LABSPEC 13:38 | PROVIDERS: PCP Family Medicine; Visit Provider Family Medicine | DX: R35.0 Frequency of micturition (principal) | CPT/HCPCS: 87086 ==